=== PATIENT | female | born 1970 | race Caucasian/White ===

== ENCOUNTER 2017-02-17 12:46 | Emergency (ER) | payer OTHER ==
[~2017-02-17] VITALS: Ht 160 cm; Wt 79.4 kg
[~2017-02-17 12:46] MED LIST: CARDIZEM CD120 MG PO; CARLSON VITAM2000 IU PO; LEVOTHYROXIN0.088 MG PO; PANTOPRAZOLE SO40 M1 PO; RANITIDINE150 M1 PO; VITAMIN D50000 IU PO; ZOLPIDEM 10MG T10 MG PO
[2017-02-17 13:10] LABS: URINE BILIRUBIN - DIPSTICK NEGATIVE (NEG); URINE BLOOD NEGATIVE (NEG)
--- NOTE | 2017-02-17 13:18 | Emergency Room Report ---
History of Present Illness Time Seen by 1314 Presenting Problem in Triage Pt arrived:Walked Presenting Problem:BACK DISCOMFORT X 2 WEEKS THAT SHE THOUGHT WAS A PULLED MUSCLE; TREATED AT HOME SUCH AND THEN PT STATES IT PROGRESSED TO HER ABD Onset of symptoms date/time:/ or onset unknown for:MEDICAL HX UNKNOWN Treatment Prior to Arrival: [facility]ARE [facility] Provided by: Sepsis Risk Assessment: Temp: 98.8 B/P: 153/67 MAP: 95 Pulse: 89 Resp: 18 Recent fever? N Clinical Suspician of Infection? N Mental Status: 1 - Regular (Normal Baseline) Sepsis Risk:Low Sepsis Risk Have you (or family members/close friends) recently traveled outside the [place]? N If Yes, where/when: Have you had exposure to infectious disease within the past month? TB? Other? Specify: Source patient, RN notes reviewed, family, RN/MD Exam Limitations no limitations Comment Patient is here with low back pain for the past 2 weeks, recently radiating into her lower abdomen. Patient denies any fever, chills, diarrhea or vomiting. ALLERGIES Coded Allergies: No Known Drug Allergies (02/17/17) Home Medications Reported Medications Levothyroxine Sodium (Levothyroxine 0.088MG) 0.088 MG PO DAILY ERGOCALCIFEROL (VITAMIN D2) (Vitamin D2) 50,000 IUNITS PO WEEKLY #15 Zolpidem Tartrate (Zolpidem 10MG) 10 MG PO QHS #30 Pantoprazole Sodium 40 MG PO DAILY #30 Ranitidine Hydrochloride (Ranitidine) 150 MG PO DAILY PRN HEARTBURN #60 DILTIAZEM HCL (Diltiazem 24HR ER) 120 MG PO DAILY #30 Vitamin D (Jay Vitamin D) 4,000 IU PO DAILY History Medical History General Angina: No MA: No Hypertension? No Hyperlipidemia? No CHF? No COPD? No Asthma? No CVA? No Seizures? No Diabetes? No GB Disease: Yes MRSA? No TB? No Cancer? 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 2 or more SIRS Criteria Met? B/P:153/ MAP:95 Creatinine >2.0? UA output<0.5ml/kg/hr for 2 hrs? Platelet count >100,000? Lactate >2.0mmol/1? INR >1.2 or PTT > than 60 sec? Evidence of Organ Dysfunction? Provider documented clinical suspician of infection? N Sepsis Criteria Count: 0 Sepsis Risk: Low Sepsis Risk General Appearance normal appearance, WD/WN, mild distress Respiratory Status Yes: trachea midline, chest symmetrical, non tender chest. No: respiratory distress. Lung Sounds bilateral: normal breath sounds, lungs clear. Cardiovascular normal exam, regular rate/rhythm, no peripheral edema, no gallop, no JVD, no murmur, no rub, normal peripheral pulses Gastrointestinal normal bowel sounds, soft, no organomegaly, tenderness (lower abdomen tender to palpat) Extremities non-tender, normal range of motion, normal inspection Neurologic alert, pharmacy aide II-XII nml as tested, normal exam, oriented x 3 Mental status normal mood/affect Skin intact, normal color, warm/dry Medical Decision Making LABS/Meds/Orders Pt receiving controlled substance in ED? No Comment 1420-patient appears upon reevaluation in no acute distress, medically stable, clinically improving. Advised patient results obtained, need to follow-up with PCP per discharge instructions. Results/Orders Laboratory Tests 02/17/17 1305: Amylase 38 02/17/17 1305: Sodium 138, Potassium 4.2, Chloride 103, Carbon Dioxide 29, BUN 8, Creatinine 0.8, Estimated Creat Clear 108, Estimated GFR (MDRD) 77, Glucose 109 H, Calcium 9.6, Total Bilirubin 1.1 H, AST 23, ALT 53, Alkaline Phosphatase 108, Total Protein 7.3, Albumin 3.9, Globulin 3.4 H, Albumin/Globulin Ratio 1.1, Lipase 101, WBC 9.5, RBC 5.28, Hgb 16.5 H, Hct 49.8 H, MCV 94.3, RDW 13.0, Plt Count 309, MPV 7.2 L, Gran % 53.8, Gran # 5.1, Lymphocytes % 37.6, Monocytes % 3.8, Eosinophils % 4.1, Basophils % 0.7, Lymphocytes # 3.6, Monocytes # 0.4, Eosinophils # 0.4, Basophils # 0.1, PUBS MCHC 33.1, MCH 31.2 02/17/17 1255: Urine Color YELLOW, Urine Appearance CLEAR, Urine pH 5.5, Ur Specific [place] 1.010, Urine Protein NEGATIVE, Urine Ketones NEGATIVE, Urine Blood NEGATIVE, Urine Nitrate NEGATIVE, Urine Bilirubin NEGATIVE, Urine Urobilinogen 0.2, Ur Leukocyte Esterase NEGATIVE, Urine RBC NONE, Urine WBC NONE, Ur Squamous Epith Cells 20-50, Urine Bacteria 1+, Urine Glucose NEGATIVE Orders Procedure Date/time Status DIET-NOTHING BY MOUTH 02/17 D Active AMYLASE 02/[address] ABD/PELVIS REQ 02/17 1302 Complete IV SALINE LOCK 02/17 1302 Active URINALYSIS/COMPLETE 02/17 1302 Complete LIPASE 02/17 1302 Complete CBC WITH AUTO DIFF 02/17 1302 Complete CHEM 12 PROFILE 02/17 1302 Complete XRAY/CT/US XRAY/CT/US CT abdomen, pelvis CT interpretation by discussed w/radiologist CT Results abnormal Comment See the radiologist's report Departure Departure Time of Disposition 1436 Disposition DC Home or Self Care(routine) Clinical Impression Primary Impression: Low back pain Qualifiers: Chronicity: chronic Back pain laterality: midline Sciatica presence : without sciatica Qualified Code: M54.5 - Low back pain Condition STABLE Patient Instructions DI for Low Back Pain Additional Instructions Please take the medications prescribed as needed for pain, follow-up with your PCP as already scheduled on Friday, in the office. Discharge Counseling Counseled pt/family regarding diagnosis, test results, medications/RX, home care, follow up needs Comment Please take the medications prescribed as needed for pain, follow-up with your PCP as already scheduled on Friday, in the office. Prescriptions Current Visit Scripts Etodolac (Etodolac 200MG CAP) 200 MG PO QIDP PRN pain #28 CAP ED Critical Care Critical Care No at [id number]
--- OUTSIDE RECORDS SUMMARY | 2017-02-17 13:18 | External Medical Summary Rpt | CCD ---
Author Author [facility] Organization [facility] Address Unknown Phone Unavailable Purpose Continuity of Care Document - through 2016
--- OUTSIDE RECORDS SUMMARY | 2017-02-17 13:18 | External Medical Summary Rpt | CCD ---
Demographics Preferred Language Singaporean Marital Status Unknown Amish Affiliation Unknown Race Unknown Ethnic Group Unknown Author Author , ELI BENITEZ Address Unknown Phone Immunization No patient found.
--- OUTSIDE RECORDS SUMMARY | 2017-02-17 13:18 | External Medical Summary Rpt | CCD ---
Author Author ELI Address Unknown Phone Purpose Continuity of Care Document - through 2016
--- OUTSIDE RECORDS SUMMARY | 2017-02-17 13:18 | External Medical Summary Rpt | CCD ---
Demographics Preferred Language Indonesian Marital Status Unknown Lutheran Affiliation Unknown Race Unknown Ethnic Group Unknown Author Author , LEI BENITEZ Address Unknown Phone Immunization No patient found.
[2017-02-17 13:20] LABS: HEMOGLOBIN 16.5 g/dL (12.2-16.2); LYMPH # 3.6 K/mm3 (0.7-4.5); LYMPH % 37.6 % (10-50.0)
[2017-02-17 13:29] LABS: URINE SQUAMOUS CELLS 20-50 #/hpf (0-5)
--- NOTE | 2017-02-17 14:12 | RADIOLOGY REPORT PS360 ---
CT ABD PELVIS W/ CONTRAST CLINICAL INDICATION: Abdomen pain, left flank pain, left-sided abdominal pain H/O ABD AND BACK PAIN ORDERING PHYSICIAN: Harry Solis MD PATIENT AGE: 46 years COMPARISON: None TECHNIQUE: Axial images obtained with sagittal and coronal reformats. PROCEDURE: Oral Contrast: None IV Contrast: 75 mL [id number]. FINDINGS: No acute finding in the lung bases. No focal liver lesion. There has been a prior cholecystectomy with minimal prominence of the biliary tree which could be a physiologic response to the cholecystectomy. The spleen, adrenal glands, and pancreas are unremarkable. No renal calculi or hydronephrosis. No ureteral calculi. No obvious renal mass. There are few small lymph nodes in the retroperitoneum. No evidence of abdominal aortic aneurysm. Prior hysterectomy. No pelvic mass or abnormal fluid collection no evidence of appendicitis or diverticulitis. Probable left ovarian cyst at 13 mm. No acute bony anomalies. IMPRESSION: 1. No acute abdominal or pelvic findings. 2. Small left ovarian cyst. 3. Nonacute findings as described above
[2017-02-17] MEDS ORDERED: ETODOLAC200 MG PO (14:38)
[2017-02-17 14:45] VITALS: BP 153/67
== END 2017-02-17 14:45 | disposition home or self-care (01) ==
LOC: ER 12:46
PROVIDERS: Emergency Medicine
DX: M54.5 Low back pain (principal); G89.29 Other chronic pain; F17.210 Nicotine dependence, cigarettes, uncomplicated; Z79.899 Other long term (current) drug therapy
CPT/HCPCS: Q9967